=== PATIENT | female | born 1960 | race Caucasian/White ===

== ENCOUNTER → 2016-08-02 | Outpatient (CLI) | payer OTHER, SELFPAY ==
[~2016-08-02] MED LIST: ASPIRIN325 PO; CARAFATE 1 GM TA1 G1 PO; CO Q-10100 MG PO; FOLIC ACID 40400 MCG PO; HYDROCODONE-AP1 EAC6 PO; IBUPROFEN 600600 M1 PO; IBUPROFEN 800800 M1 PO; LEVOTHYROXINE0.05 MG PO; LIPITOR 20 MG T20 M1 PO; METHOTREXATE 22.5 MG PO; NAPROSYN500 MG PO; NORCO 5-325 TA1 EACH PO; OMEPRAZOLE40 MG PO; ONDANSETRON HCL4 M2 PO; TRAMADOL 50 MG50 MG PO; XELJANZ XR11 MG PO; ZOFRAN ODT4 MG PO
--- NOTE | ~2016-08-02 | 2DMMODE ---
[facility] [address] [place] [address] 2 D/M-MODE ECHOCARDIOGRAM Name: EDILIA SANDERSMIESHA BEAR Room #: REG CL JuliaHeena#: [id number] Admission: 08/02/16 Attend Phys: Ilya Krishnan Discharge: Date of : 62 Date of Service: 08/02/16 1020 Report #: [id number] THIS REPORT FOR: //name// Transthoracic Echocardiography Ordering physician: Ilya Anaya Referring Rojelio Oconnor Francisco physician: Analy Alteration Inspector: SAMIA Mills Indications/History: Chest pain, Palpitations. BP: 112 / HR: 59bpm Height: 62in Weight: 154.7lb 72 Study data: M-mode, complete 2D, complete spectral Doppler, and color Doppler. Location: Echo laboratory. Routine. Image quality was adequate. The study was technically limited due to breast implants. 2D measurements Normal Normal LVID ED 40.2mm 36-57 IVS ED 9.6mm 6-11 LVID ES 25.2mm 23-40 LVPW ED 10.5mm 6-11 LA volume index 16-28 AoRoot diam ED 24.6mm 21-37 LVOT diameter 17mm 18-23 Findings: Left ventricle: The cavity size was normal. Wall thickness was normal. Systolic function was normal. The estimated ejection fraction was in the range of 55% to 60%. Wall motion was normal. Right ventricle: The cavity size was normal. Systolic function was normal. Right atrium: The atrium was normal in size. Left atrium: The atrium was normal in size. Aortic valve: Structurally normal valve. Trileaflet. Doppler: There was no stenosis. No regurgitation. Peak velocity: 156cm/s (S). [address] [address] 2 D/M-MODE ECHOCARDIOGRAM Name: GALI SANDERS Room #: REG Indira#: [id number] Admission: 08/02/16 Attend Phys: Ilya Krishnan Discharge: Date of : 62 Date of Service: 08/02/16 1020 Report #: [id number] Mitral valve: Structurally normal valve. Doppler: There was no evidence for stenosis. Mild regurgitation. Peak E-wave velocity: 72.9cm/s. Peak gradient: 2.1mm Hg (D). Peak A-wave velocity: 48.1cm/s. Tricuspid valve: Structurally normal valve. Doppler: There was no evidence for stenosis. Trivial regurgitation. Regurgitant peak velocity: 218.1cm/s. Peak RV-RA gradient: 19mm Hg (S). Pulmonic valve: Structurally normal valve. Doppler: There was no evidence for stenosis. Trivial regurgitation. Pericardium: There was no pericardial effusion. Aorta: Aortic root: The aortic root was normal in size. Pulmonary artery: Systolic pressure was estimated to be 24mm Hg. Diastolic function: Normal diastolic function. Systemic veins: Inferior vena cava: The vessel was normal in size; the respirophasic diameter changes were in the normal range (= 50%). Conclusions 1. Left ventricle: Systolic function was normal. The estimated ejection fraction was in the range of 55% to 60%. Wall motion was normal. 2. Aortic valve: Structurally normal valve. Trileaflet. There was no stenosis. No regurgitation. 3. Mitral valve: Structurally normal valve. Mild regurgitation. 4. Pericardium, extracardiac: There was no pericardial effusion. 5. Pulmonary arteries: Systolic pressure was estimated to be 24mm Hg. <ELECTRONICALLY SIGNED> By: Michoacano Crews MD, [facility] 08/02/16 1121 1020 1121 Michoacano Crews MD, [facility] /brielle
== END ==
LOC: CV 08:46
DX: R00.2 Palpitations (principal); R07.9 Chest pain, unspecified

== ENCOUNTER 2016-08-08 09:23 | Emergency (ER) | payer OTHER, SELFPAY ==
[~2016-08-08] VITALS: Ht 154.9 cm; Wt 68.0 kg
[~2016-08-08 09:23] MED LIST changes: -CO Q-10100 MG PO; -LIPITOR 20 MG T20 M1 PO; -OMEPRAZOLE40 MG PO; -TRAMADOL 50 MG50 MG PO; -XELJANZ XR11 MG PO; -ZOFRAN ODT4 MG PO
[2016-08-08 09:57] LABS: HEMOGLOBIN 14.1 gm/dL (12.0-15.0); MCH 30.3 pg (26.0-34.0); MCHC 33.6 % (28.0-37.0); PLATELET COUNT 263 thou/uL (150-400); RBC 4.67 mil/uL (4.20-5.00); RDW 13.1 % (10.5-14.5); WBC 8.4 thou/uL (4.0-11.0)
[2016-08-08 09:58] LABS: MANUAL DIFF YES
[2016-08-08 09:59] LABS: CALCIUM 9.9 mg/dL (8.5-10.1); CREATININE 0.9 mg/dL (0.6-1.3); POTASSIUM 4.1 mmol/L (3.5-5.1)
[2016-08-08 10:05] LABS: ALBUMIN 4.3 g/dL (3.4-5.0); DIRECT BILIRUBIN 0.2 mg/dL (<0.1-0.3)
[2016-08-08 10:25] LABS: ABSOLUTE NEUTROPHILS 7.9 thou/uL (1.4-8.2); TOTAL CELL COUNT 100
[2016-08-08] MEDS ORDERED: LIPITOR 20 MG T20 M1 PO (10:31)
[2016-08-08] MEDS ORDERED: OMEPRAZOLE40 MG PO (10:31)
[2016-08-08] MEDS ORDERED: CO Q-10100 MG PO (10:32)
[2016-08-08] MEDS ORDERED: TRAMADOL 50 MG50 MG PO (10:32)
[2016-08-08] MEDS ORDERED: XELJANZ XR11 MG PO (10:33)
[2016-08-08 10:49] LABS: URINE BLOOD NEGATIVE (Negative); URINE COLOR YELLOW; URINE GLUCOSE-RANDOM* NEGATIVE (Negative); URINE KETONES TRACE (Negative); URINE LEUKOCYTES-REFLEX TRACE (Negative); URINE PROTEIN (DIPSTICK) TRACE (Negative); URINE SPECIFIC GRAVITY >= 1.030 (1.003-1.035); URINE UROBILINOGEN 0.2 E.U./dl (0.2-1.0)
[2016-08-08 10:50] LABS: URINE BILIRUBIN NEGATIVE (Negative)
[2016-08-08] MEDS ORDERED: ZOFRAN ODT4 MG PO (11:47)
[2016-08-08 12:14] VITALS: BP 102/66
== END 2016-08-08 12:16 | disposition home or self-care (01) ==
LOC: ER 09:23
PROVIDERS: Emergency Medicine
DX: R11.2 Nausea with vomiting, unspecified (principal); R19.7 Diarrhea, unspecified; M06.9 Rheumatoid arthritis, unspecified; Z88.2 Allergy status to sulfonamides; F10.99 Alcohol use, unspecified with unspecified alcohol-induced disorder

== ENCOUNTER 2017-09-04 20:54 | Emergency (ER) | payer OTHER, SELFPAY ==
[~2017-09-04] VITALS: Ht 157.5 cm; Wt 74.8 kg
[~2017-09-04 20:54] MED LIST changes: +CO Q-10100 MG PO; +LIPITOR 20 MG T20 M1 PO; +OMEPRAZOLE40 MG PO; +TRAMADOL 50 MG50 MG PO; +XELJANZ XR11 MG PO; +ZOFRAN ODT4 MG PO
[2017-09-04] MEDS ORDERED: NORCO 5-325 TA1 EACH PO (21:51)
[2017-09-04] MEDS ORDERED: PREDNISONE 20 M20 MG PO (21:51)
[2017-09-04 22:15] VITALS: BP 143/95
== END 2017-09-04 22:16 | disposition home or self-care (01) ==
LOC: ER 20:54
DX: S46.911A Strain of unspecified muscle, fascia and tendon at shoulder and upper arm level, right arm, initial encounter (principal); M54.12 Radiculopathy, cervical region; M19.90 Unspecified osteoarthritis, unspecified site; Z88.2 Allergy status to sulfonamides; X58.XXXA Exposure to other specified factors, initial encounter; Y93.89 Activity, other specified; Y92.89 Other specified places as the place of occurrence of the external cause; Y99.8 Other external cause status

== ENCOUNTER 2018-01-10 00:57 | Emergency (ER) | payer OTHER ==
[~2018-01-10] VITALS: Ht 157.5 cm; Wt 72.6 kg
[~2018-01-10 00:57] MED LIST changes: +PREDNISONE 20 M20 MG PO
[2018-01-10] MEDS ORDERED: HYDROCODONE-AP1 EAC6 PO (02:27)
[2018-01-10] MEDS ORDERED: NAPROSYN500 MG PO (02:27)
[2018-01-10 02:45] VITALS: BP 118/60
== END 2018-01-10 02:48 | disposition home or self-care (01) ==
LOC: ER 00:57
DX: M71.561 Other bursitis, not elsewhere classified, right knee (principal); R55 Syncope and collapse; Z88.2 Allergy status to sulfonamides

== ENCOUNTER → 2018-08-27 | Outpatient (CLI) | payer BC, OTHER | LOC: RAD 10:23 | DX: N64.4 Mastodynia (principal); R07.89 Other chest pain ==